=== PATIENT | female | born 1980 | race Caucasian/White ===

== ENCOUNTER 2017-09-23 07:39 | Day surgery (SDC) | payer OTHER ==
[2017-09-16 09:41] LABS: HEMATOCRIT 40.2 % (36.0-47.0); MEAN CORPUSCULAR HEMOGLOBIN 28.9 pg (27.0-33.4); MEAN CORPUSCULAR HGB CONC 32.4 g/dL (32.0-36.0); MEAN CORPUSCULAR VOLUME 89 fl (80-97); PLATELET COUNT 254 10^3/uL (150-450); RED BLOOD COUNT 4.51 10^6/uL (3.72-5.28); RED CELL DISTRIBUTION WIDTH 13.6 % (11.5-14.0); WHITE BLOOD COUNT 5.2 10^3/uL (4.0-10.5)
[2017-09-16 10:03] LABS: ALANINE AMINOTRANSFERASE 25 U/L (9-52); ALBUMIN 4.1 g/dL (3.5-5.0); ALKALINE PHOSPHATASE 103 U/L (38-126); ANION GAP 11 (5-19); ASPARTATE AMINO TRANSFERASE 19 U/L (14-36); BILIRUBIN,DIRECT 0.2 mg/dL (0.0-0.4); BILIRUBIN,TOTAL 0.2 mg/dL (0.2-1.3); BLOOD UREA NITROGEN 23 mg/dL (7-20); CALCIUM 9.6 mg/dL (8.4-10.2); CARBON DIOXIDE 29 mmol/L (22-30); CHLORIDE 105 mmol/L (98-107); GLUCOSE 101 mg/dL (75-110); POTASSIUM 4.9 mmol/L (3.6-5.0); SODIUM 144.5 mmol/L (137-145); TOTAL PROTEIN 6.3 g/dL (6.3-8.2)
[~2017-09-23 07:39] MED LIST: CEFAZOLIN SODIUM 2 GM in DEXTROSE 5%-WATER 100 ML IV PRN; GLYCOPYRROLATE INJ 0.4 MG/2 ML VIAL ONE; LACTATED RINGERS 1000 ML IV PRN; LIDOCAINE 0.5% INJ-PF (5 MG/ML) 50 ML SDV SUBCUT PRN; NEOSTIGMINE METHYLSULFATE 10 MG/10 ML VIAL ONE; RINGERS SOLUTION,LACTATED 1,000 ML IV PRN; SUCCINYLCHOLINE CHLORIDE INJ 200 MG/10 ML VIAL ONE; VECURONIUM BROMIDE INJ 10 MG VIAL IV ONE
[2017-09-23] MEDS ORDERED: BUPIVACAINE HCL 0.25 % INJ/PF (2.5 MG/1 ML) 30 ML VIAL ONE (09:11)
[2017-09-23] MEDS ORDERED: METHYLENE BLUE 50 MG/10 ML AMPULE ONE (09:11)
[2017-09-23] MEDS: ALPRAZOLAM 0.5 MG TABLET PO ONE ×2 (09:40→15:04)
[2017-09-23] MEDS ORDERED: FENTANYL CITRATE INJ/PF 250 MCG/5 ML AMPULE ONE (10:39)
[2017-09-23] MEDS ORDERED: LIDOCAINE 2% INJ-PF (20 MG/ML) 10 ML AMPUL ONE (10:39)
[2017-09-23] MEDS ORDERED: MIDAZOLAM 2 MG/2 ML INJ ONE (10:40)
[2017-09-23] MEDS ORDERED: PROPOFOL INJ 200 MG/20 ML VIAL IV ONE (10:40)
[2017-09-23] MEDS ORDERED: ACETAMINOPHEN 100 ML IV ONE (10:40)
[2017-09-23] MEDS ORDERED: MORPHINE SULFATE 10 MG/ML INJ ONE (10:40)
[2017-09-23] MEDS ORDERED: ONDANSETRON HCL INJ/PF 4 MG/2 ML SDV ONE (10:41)
[2017-09-23] MEDS ORDERED: DEXAMETHASONE SOD PHOSPHATE INJ 4 MG/1 ML VIAL ONE (10:41)
[2017-09-23] MEDS ORDERED: KETOROLAC TROMETHAMINE 60 MG/2 ML SDV ONE (10:41)
[2017-09-23] MEDS ORDERED: OXYCODONE-ACETAMINOPHEN 5-325 MG TABLET PO PRN ×3 (11:30→14:03)
[2017-09-23] MEDS ORDERED: MEPERIDINE HCL/PF INJ 25 MG/1 ML DISP.SYRIN IV PRN (11:30)
[2017-09-23] MEDS ORDERED: DIPHENHYDRAMINE HCL 50 MG/ML VIAL IV PRN (11:30)
[2017-09-23] MEDS ORDERED: ONDANSETRON HCL INJ/PF 4 MG/2 ML SDV IV PRN ×2 (11:30→14:04)
[2017-09-23] MEDS ORDERED: FENTANYL CITRATE INJ/PF 100 MCG/2 ML AMPUL IV PRN ×3 (11:30)
[2017-09-23] MEDS ORDERED: PROMETHAZINE HCL INJ 25 MG/1 ML VIAL IV PRN ×3 (11:30→14:05)
[2017-09-23] MEDS ORDERED: MORPHINE SULFATE 10 MG/ML INJ IV PRN ×2 (11:30→14:03)
[2017-09-23] MEDS: PROMETHAZINE HCL INJ 25 MG/1 ML VIAL ONE ×2 (13:22→13:40)
[2017-09-23] MEDS: FENTANYL CITRATE INJ/PF 100 MCG/2 ML AMPUL ONE ×2 (13:30→13:38)
[2017-09-23] MEDS ORDERED: OXYCODONE HCL IR 5 MG TABLET PO PRN (14:04)
--- NOTE | 2017-09-23 14:15 | OPERATIVE REPORT E ---
Operative Report NAME: LAMAR CHANEL : 1980 AGE: 37Y DATE OF SURGERY: 09/23/2017 ROOM: PREOPERATIVE DIAGNOSES: 1. Chronic pelvic pain. 2. Abnormal uterine bleeding unresponsive to medical therapy. 3. Previous x2. POSTOPERATIVE DIAGNOSES: 1. Chronic pelvic pain. 2. Abnormal uterine bleeding unresponsive to medical therapy. 3. Previous x2. OPERATION: 1. Robotic total laparoscopic hysterectomy. 2. Bilateral salpingectomy. 3. Cystoscopy. 4. Lysis of adhesions. SURGEON: Sarahy Finch MD ELECTRIC DRILL OPERATOR: Lisa Milan MD ANESTHESIA: General ESTIMATED BLOOD LOSS: 150 mL INTRAVENOUS FLUIDS: 1800 mL URINE OUTPUT: 150 mL COMPLICATIONS: None. INDICATION: The patient is a 37-year-old 3, para 2-0-1-2 with a history of a previous x2 and chronic pelvic pain, abnormal uterine bleeding unresponsive to medical therapy. The patient desires definitive surgical management. The patient counseled extensively on the procedure risks including but not limited to bleeding, infection, injury to surrounding organs or tissue including bowel or bladder and need of exploratory laparotomy in case there is bleeding at the surgical site, the surgical procedure that cannot be identified or controlled via laparoscopy. The patient agreed and counseled and consented to procedure and understood and agreed to proceed to the operating room. FINDINGS: A soft boggy uterus consistent with adenomyosis, normal right ovary, normal left ovary, normal fallopian tubes bilaterally, extensive lower uterine segment scarring and adhesions adhered to the anterior abdominal wall. PROCEDURE: The patient was taken to the operating room. General anesthesia was induced without difficulty. The patient was placed in the dorsal lithotomy position, was sterilely prepped and draped in a normal sterile fashion. A Evan Hugger was placed and obtained control of core body temperature. A Koehler catheter was placed in the bladder. A single-tooth tenaculum was placed in the cervix to grasp the cervix. The cervix was dilated with a cervical os dilator. The uterus was sounded to about 8 cm of length. Two izuhcg-fj-ssbwx stitches around 3 and 9 o'clock were placed for anchoring sutures before placing the VCare and the VCare manipulator was attached to the uterus with a cervical ring and anchored to the stitches on the right and left. A weighted speculum and single-tooth tenaculum were removed. A horizontal supraumbilical incision was performed. A Veress needle was introduced. Insufflation of the abdomen was performed after appropriate drop test. The abdomen was insufflated with carbon dioxide until pneumoperitoneum was established. The Veress needle was removed, and the supraumbilical incision was slightly extended. A 12 mm trocar inserted and placed in the abdominal cavity. Visualization of the abdomen revealed the above findings. The right lower and left lower quadrant and right upper quadrant ports were inserted under direct visualization. Attention was then turned to the right side at this point. The right infundibulopelvic ligament was cauterized and transecting. The right fimbriated end of the fallopian tube was grasped, cauterized, and transected along the mesosalpinx all the way to the cornual region. Utero-ovarian ligament cauterized and transected, and the round ligament cauterized and transected all the way down to the level of the uterus. On the contralateral side, this was performed in a similar fashion. After reaching all the way down to the level of the uterine's, the right and the left bladder flap that was created was connected care home from both sides. Due to extensive scarring and adhesions that had to be taken, the lysis of adhesion with cauterization was *------* and transection, and just pushing the bladder as far away as possible away from the anterior colpotomy site. After pushing the bladder all the way down and performing it safely, the anterior colpotomy was performed and the VCare ring was identified upon performing the colpotomy. After performing the anterior and posterior colpotomy, connecting them in a circumscribed fashion, the uterus was removed with the cervix and the fallopian tubes. At this point, irrigation was performed. Vaginal cuff was completely intact, and there were slightly oozing spots and those were cauterized with the bipolar. At this point when the uterus was removed, the therapeutic assistant has instructed me there was slightly small oozing of hematuria in the Koehlre catheter right after the removal of the uterus. At this point, we have done a backfill of approximately 300 mL of methylene blue and the bladder wall seemed to be intact and there was no extravasation into the abdominal cavity of methylene blue. It seemed to be completely intact. Both ureters on the right and the left were peristalsing and were normal in nature. At this point, the vaginal cuff was closed and I instructed Anesthesia to give methylene blue through the IV in order to make sure when we do the cystoscopy portion we are ready for that part. After making sure there were no lacerations from above to the bladder and closing the vaginal cuff using a V-Loc suture, FloSeal was applied on top of the vaginal cuff for prophylactic hemostasis. At this point, attention was turned below for the cystoscopy portion. The cystoscope revealed completely normal ureters bilaterally with excellent efflux of methylene blue coming from both the left and the right ureters. The bladder integrity was visualized. The double bubble sign was visualized. There were no lacerations, perforations, foreign bodies, sutures, or injuries identified in the bladder mucosa. It appeared that possibly the urethra was irritated with the Koehler catheter and it could have bled a little bit, but there was no active bleeding inside the bladder whatsoever. At this point after making sure that completely the bladder anatomy was normal with excellent efflux of methylene blue bilaterally from both the ureters, double bubble sign, and no lacerations, the cystoscope was removed. Upon removal of the cystoscope slowly, visualization of the urethra seemed to be completely hemostatic and there was no bleeding, oozing, or laceration to the urethra either. A sponge stick was inserted vaginally removing any residual blood and then upon inspection of the vaginal mucosa there was a posterior fourchette superficial laceration that was repaired with a 3-0 Vicryl on a SH in a [id number]-we-[id number] stitch and that became hemostatic. At this point after removing the cystoscope and inspecting the vaginal mucosa, and everything seemed to be hemostatic and normal from below, the robot was undocked, trocars were removed, and the abdomen was desufflated. All incisions were repaired. The supraumbilical incision was repaired with a UR6 reapproximating the fascia in a [id number]-dq-yhyuw stitch, and then all the stitches were closed in a subcuticular fashion using 4-0 Monocryl. Marcaine 0.25% was applied around the incisions for postoperative pain control. Dermabond was applied on top of the incision. All sponge, lap, and needle counts were correct x2. Patient did receive prophylactic IV antibiotics. Patient tolerated the procedure well and was taken back to the recovery room in stable condition. Koehler catheter was removed. DICTATING PHYSICIAN: Sarahy Finch MD [id number] PHY#: [id number] ID: [id number] JOB#: [id number] ACCT: [id number] cc:Sarahy Finch >
[2017-09-23] MEDS ORDERED: NORMAL SALINE 1000 ML 1,000 ML IV ONE (15:00)
[2017-09-23 18:27] VITALS: BP 115/72
== END 2017-09-23 18:50 | disposition home or self-care (01) ==
LOC: OROUT 07:39 → 2N 14:32 → OROUT 18:50
PROVIDERS: ATTEND Obstetrics & Gynecology
PROC: 0UT74ZZ Resection of Bilateral Fallopian Tubes, Percutaneous Endoscopic Approach (ICD-10-PCS; 2017-09-23)
PROC: 8E0W4CZ Robotic Assisted Procedure of Trunk Region, Percutaneous Endoscopic Approach (ICD-10-PCS; 2017-09-23)
PROC: 0UT94ZZ Resection of Uterus, Percutaneous Endoscopic Approach (ICD-10-PCS; principal; 2017-09-23 10:00)
DX: N92.1 Excessive and frequent menstruation with irregular cycle (principal); G89.29 Other chronic pain; R10.2 Pelvic and perineal pain; N87.0 Mild cervical dysplasia; R23.4 Changes in skin texture; N84.0 Polyp of corpus uteri; E66.9 Obesity, unspecified; G43.909 Migraine, unspecified, not intractable, without status migrainosus; I10 Essential (primary) hypertension; G40.909 Epilepsy, unspecified, not intractable, without status epilepticus; G35 Multiple sclerosis; M19.90 Unspecified osteoarthritis, unspecified site; Z68.41 Body mass index [BMI] 40.0-44.9, adult; Z79.51 Long term (current) use of inhaled steroids; Z88.8 Allergy status to other drugs, medicaments and biological substances
CPT/HCPCS: 86900; 86901; 36415; 86850; 85027; 81025; 80053; 88307 ×2; 58571; J2250; J0690; J1100; J1885; J3010 ×2; J3490 ×2; J2270; J2550; J0330; J2405; J2704; J0131; Q9968; S2900; 840

== ENCOUNTER → 2018-03-05 | Outpatient (CLI) | payer OTHER ==
[2018-03-05 13:39] LABS: ALANINE AMINOTRANSFERASE 19 U/L (9-52); ALBUMIN 4.4 g/dL (3.5-5.0); ALKALINE PHOSPHATASE 90 U/L (38-126); ASPARTATE AMINO TRANSFERASE 16 U/L (14-36); BILIRUBIN,DIRECT 0.5 mg/dL (0.0-0.4); BILIRUBIN,TOTAL 0.9 mg/dL (0.2-1.3); TOTAL PROTEIN 6.9 g/dL (6.3-8.2)
[2018-03-07 06:39] LABS: ENDOMYSIAL ANTIBODY IGA Negative (Negative)
[2018-03-07 11:07] LABS: DEAMIDATED GLIADIN IGA AB 5 units (0-19); DEAMIDATED GLIADIN IGG AB 3 units (0-19); T-TRANSGLUTAMINASE (TTG) IGA <2 U/mL (0-3); T-TRANSGLUTAMINASE (TTG) IGG <2 U/mL (0-5)
== END ==
LOC: OD 12:24
PROVIDERS: ATTEND Internal Medicine Gastroenterology
DX: K90.0 Celiac disease (principal); R10.11 Right upper quadrant pain
CPT/HCPCS: 36415; 80076; 83520